=== PATIENT | male | born 1980 | race African-American/Black ===

== ENCOUNTER 2016-06-05 07:00 | Emergency (ER) | payer SELFPAY ==
[~2016-06-05] VITALS: Ht 170.2 cm; Wt 89.0 kg
[2016-06-05 07:03] VITALS: BP 150/82; PULSE 60; RESP 16; TEMP 97.8; O2SAT 99
--- NOTE | 2016-06-05 07:39 | PD ---
HPI Chief Complaint: Injury Time Seen by Provider: 07:39 Travel History International Travel<30 days: No Contact w/Intl Traveler<30days: No Traveled to known affect area: No History of Present Illness HPI 36-year-old male presents to the emergency Department with complaint of a callus to the bottom of his right side 1 month that has become painful and is bothering him. He says he stands long hours at work and it causes pain. Denies fever or vomiting. Denies paresthesias, loss of sensation, decreased range motion, decreased strength to the affected extremity. Has not taken any medications or trying treatments to alleviate the symptoms. Has no other medical complaints. No known allergies. No modifying factors or associated signs and symptoms. History Social History Alcohol Use: Yes (soc) Tobacco Use: Yes (/2 ppd) Allergies-Medications (Allergen,Severity, Reaction): Coded Allergies: No Known Allergies (Verified , 06/05/16) Reported Meds & Prescriptions Reported Meds & Active Scripts Active No Active Prescriptions or Reported Medications Review of Systems Except as stated in HPI: all other systems reviewed are Neg Physical Exam Narrative GENERAL: Well-nourished, well-developed male patient, in no acute distress SKIN: Warm and dry. Area of hardened skin to the bottom of the right foot, consistent with either a callus or plantar wart. Area is without erythema, edema, drainage. No signs of infection. Right lower extremity is supple and non-tense with 2+ pedal pulse and sensory intact and with full range of motion and strength. HEAD: Atraumatic. Normocephalic. EYES: Pupils equal and round. No scleral icterus. No injection or drainage. ENT: Mucosa pink and moist. Airway patent. NECK: Trachea midline. CARDIOVASCULAR: Regular rate. RESPIRATORY: No accessory muscle use. GASTROINTESTINAL: Flat. MUSCULOSKELETAL: No obvious deformities. No clubbing. No cyanosis. No edema. NEUROLOGICAL: Awake and alert. Oriented 3. No obvious cranial nerve deficits. Motor grossly within normal limits. Normal speech. PSYCHIATRIC: Appropriate mood and affect; insight and judgment normal. Data Data Last Documented VS Vital Signs Date Time Temp Pulse Resp B/P Pulse Ox O2 Delivery O2 Flow Rate FiO2 06/05/16 07:03 97.8 60 16 150/82 99 Room Air MDM Medical Screen Exam Complete: Yes Emergency Medical Condition: No Differential Diagnosis Plantar wart, callus, medical clearance Narrative Course 36-year-old male with a plantar wart or callus to the bottom of the right foot. No signs of infection. Instructed patient to follow up with podiatry. Vital signs are stable and the patient is stable for outpatient follow-up and treatment. The patient has no urgent or emergent medical complaints. There is no emergent or urgent medical need at this time. I instructed the patient to follow up with their primary care provider. A medical screening exam was performed: At the time of evaluation the presenting medical condition was determined not to be of an emergent nature. The patient was given the option of receiving additional care, but declined. Patient was given options for additional community resources from which to obtain care. The Patient Has Been advised to seek medical attention for their presenting complaint. The patient has been advised to return to the ER at any time if an emergent condition develops. Primary Impression: Encounter for medical screening examination Scripts No Active Prescriptions or Reported Meds Condition: Stable Dot William June 05, 2016 07:39
== END 2016-06-05 07:49 | disposition left against medical advice (07) ==
LOC: NEPK 07:00
DX: M79.671 Pain in right foot (principal)
CPT/HCPCS: 99281

== ENCOUNTER 2016-11-29 07:06 | Emergency (ER) | payer OTHER ==
[~2016-11-29] VITALS: Ht 170.2 cm; Wt 88.0 kg
[2016-11-29 07:07] VITALS: BP 152/78; PULSE 52; RESP 14; TEMP 98.7; O2SAT 100
--- NOTE | 2016-11-29 07:40 | PD ---
HPI Chief Complaint: Pain: Acute or Chronic Time Seen by Provider: 07:23 Travel History International Travel<30 days: No Contact w/Intl Traveler<30days: No Traveled to known affect area: No History of Present Illness HPI 36-year-old Afro-Citizen Of [place] male presents the emergency department with painful calluses/corns on the left foot he's had for several weeks but getting worse. He has attempted to self treat without improvement. He is currently without a primary care physician. He denies fever, chills, or signs of infection. Pain is 8 out of 10 with ambulation. He has no known drug allergies. COUNTS INCLUDE 234 BEDS AT THE [facility] Past Medical History Diminished Hearing: No Social History Alcohol Use: Yes (soc) Tobacco Use: Yes (/2 ppd) Substance Use: No Allergies-Medications (Allergen,Severity, Reaction): Coded Allergies: No Known Allergies (Verified , 11/29/16) Reported Meds & Prescriptions Reported Meds & Active Scripts Active No Active Prescriptions or Reported Medications Review of Systems Except as stated in HPI: all other systems reviewed are Neg General / Constitutional: No: Fever Eyes: No: Visual changes HENT: No: Headaches Cardiovascular: No: Chest Pain or Discomfort Respiratory: No: Shortness of Breath Gastrointestinal: No: Abdominal Pain Genitourinary: No: Dysuria Musculoskeletal: Positive: Pain Skin: Positive Lesions (see history present illness.), No Rash Neurologic: No: Weakness Psychiatric: No: Depression Endocrine: No: Polydipsia Hematologic/Lymphatic: No: Easy Bruising Physical Exam Narrative GENERAL: Patient is in no acute distress SKIN: Warm and dry. Patient has 2 obvious corns on the sole of the left foot, 1 at the base of the great toe, and one at the base of the fourth right toe. There are no signs of infection or drainage. HEAD: Atraumatic. Normocephalic. EYES: Pupils equal and round. No scleral icterus. No injection or drainage. ENT: No nasal bleeding or discharge. Mucous membranes pink and moist. NECK: Trachea midline. No JVD. CARDIOVASCULAR: Regular rate and rhythm. RESPIRATORY: No accessory muscle use. Clear to auscultation. Breath sounds equal bilaterally. MUSCULOSKELETAL: Extremities without clubbing, cyanosis, or edema. Patient has obvious bilateral pes planus, otherwise no significant deformities. NEUROLOGICAL: Awake and alert. No obvious cranial nerve deficits. Motor grossly within normal limits. Five out of 5 muscle strength in the arms and legs. Normal speech. PSYCHIATRIC: Appropriate mood and affect; insight and judgment normal. Data Data Last Documented VS Vital Signs Date Time Temp Pulse Resp B/P (MAP) Pulse Ox O2 Delivery O2 Flow Rate FiO2 11/29/16 07:07 98.7 52 14 152/78 (102) 100 Room Air MDM Medical Decision Making Medical Screen Exam Complete: Yes Emergency Medical Condition: No Differential Diagnosis Right foot pain. Caluses. Corns Narrative Course A medical screening exam was performed: At the time of evaluation the presenting medical condition was determined not to be of an emergent nature. The patient was given the option of receiving additional care, but declined. Patient was given options for additional community resources from which to obtain care. The Patient Has Been advised to seek medical attention for their presenting complaint. The patient has been advised to return to the ER at any time if an emergent condition develops. Scripts No Active Prescriptions or Reported Meds Condition: Atul Lilly Nov 29, 2016 07:40
== END 2016-11-29 08:11 | disposition left against medical advice (07) ==
LOC: NEPD 07:06
DX: L84 Corns and callosities (principal); F17.200 Nicotine dependence, unspecified, uncomplicated
CPT/HCPCS: 99281